=== PATIENT | female | born 1965 | race African-American/Black ===

== ENCOUNTER 2018-05-21 23:54 | Emergency (ER) | payer MEDICAID ==
[~2018-05-21] VITALS: Ht 177.8 cm; Wt 116.2 kg
[~2018-05-21 23:54] MED LIST: AMLO10TA6; AMLO5TAB4 PO; AMLO5TAB7 PO; ASPI81TA50 PO; CITA10TA8; CYCL5TAB10; FLEXERIL; GABA300C10 PO; METO-93; NAPROSYN; OMEP-110 PO; RISP1TAB45; TRAZ-136; ZIPR60CA2 PO
[2018-05-22] MEDS ORDERED: ONDANSETRON ODT 4 MG ONE (00:26)
[2018-05-22] MEDS ORDERED: KETOROLAC 30 MG/1 ML ONE (00:26)
[2018-05-22] MEDS ORDERED: ONDANSETRON ODT 4 MG PO ONE (00:30)
[2018-05-22] MEDS ORDERED: KETOROLAC 30 MG/1 ML IM ONE (00:30)
[2018-05-22 00:47] LABS: BASOPHILS # (AUTO) 0.05 x10^3/uL (0-0.1); BASOPHILS % (AUTO) 1 % (0-1); EOSINOPHILS # (AUTO) 0.21 x10^3/uL (0-0.4); EOSINOPHILS % (AUTO) 3 % (1-7); LYMPHOCYTES # (AUTO) 2.35 x10^3/uL (1-3.4); LYMPHOCYTES % (AUTO) 38 % (22-44); MD NO; MEAN CORPUSCULAR HEMOGLOBIN 31.4 pg (27.0-34.8); MEAN CORPUSCULAR HGB CONC 33.2 g/dL (32.4-35.8); MEAN CORPUSCULAR VOLUME 94.4 fL (80-100); MEAN PLATELET VOLUME 8.9 fL (7.4-10.4); MONOCYTES # (AUTO) 0.59 x10^3/uL (0.2-0.8); MONOCYTES % (AUTO) 10 % (2-9); NEUTROPHILS # (AUTO) 3.01 x10^3/uL (1.8-6.8); NEUTROPHILS % (AUTO) 49 % (42-75); PLATELET COUNT 333 x10^3/uL (130-400); RED BLOOD COUNT 3.72 x10^6/uL (3.82-5.3); RED CELL DISTRIBUTION WIDTH 13.7 % (9.6-15.2)
[2018-05-22 00:58] LABS: INTERNATIONAL NORMALIZED RATIO 0.97 (0.93-1.1)
[2018-05-22 00:59] LABS: ALANINE AMINOTRANSFERASE 18 U/L (12-78); ANION GAP 10 mmol/L (5-15); CALCIUM 8.2 mg/dL (8.5-10.1); CHLORIDE 110 mmol/L (98-107); CREATININE 1.16 mg/dL (0.55-1.02)
[2018-05-22 01:03] LABS: ALKALINE PHOSPHATASE 91 U/L (45-117); BILIRUBIN,TOTAL 0.2 mg/dL (0.2-1.0); TROPONIN I < 0.015 ng/mL (0.000-0.045)
[2018-05-22 01:22] VITALS: BP 138/76
== END 2018-05-22 02:58 | disposition home or self-care (01) ==
LOC: ED 05-22 00:10
DX: B34.9 Viral infection, unspecified (principal); L03.311 Cellulitis of abdominal wall; I48.91 Unspecified atrial fibrillation; E11.9 Type 2 diabetes mellitus without complications; I10 Essential (primary) hypertension; K21.9 Gastro-esophageal reflux disease without esophagitis; Z98.51 Tubal ligation status
CPT/HCPCS: 36415; 71046; 80053; 83880; 84484; 85025; 85610; 85730; 93005; 96372; 99285; J1885; Q0162

== ENCOUNTER 2019-08-29 13:08 | Emergency (ER) | payer MEDICAID ==
[~2019-08-29] VITALS: Ht 180.3 cm; Wt 110.5 kg
[~2019-08-29 13:08] MED LIST changes: +AMLO-150 PO; -AMLO10TA6; +AMLO10TA8; -AMLO5TAB7 PO; -TRAZ-136; +TRAZ50TA66
[2019-08-29 13:18] VITALS: BP 131/68
--- NOTE | 2019-08-29 14:00 | NUR ---
PT WITH C/O RASH TO NECK, R SIDE OF FACE AND BILAT ARMS. PT TEARFUL, SHE STATES SHE WAS TOLD TO WAIT ONE MONTH TO MAKE AN APPOINTMENT WITH PCP AFTER SHE WAS PRESCRIBED ABX AND CREAMS. PT STATES THIS HAS BEEN HAPPENING NOW FOR FOUR MONTHS AND IT IS NOT GETTING BETTER
[2019-08-29 14:19] LABS: ALBUMIN 3.3 g/dL (3.4-5.0); ANION GAP 7 mmol/L (5-15); CALCIUM 8.7 mg/dL (8.5-10.1); CHLORIDE 112 mmol/L (98-107)
[2019-08-29 14:20] LABS: CREATININE 1.32 mg/dL (0.55-1.02)
[2019-08-29] MEDS ORDERED: LORazepam 1MG TABLET ONE (15:00)
[2019-08-29] MEDS ORDERED: LORazepam 1MG TABLET PO ONE (15:00)
[2019-08-29] MEDS ORDERED: IBUPROFEN 200 MG TABLET PO ONE (15:00)
[2019-08-29] MEDS ORDERED: IBUPROFEN 600 MG TABLET ONE (15:00)
[2019-08-29 15:06] LABS: BASOPHILS # (AUTO) 0.08 x10^3/uL (0-0.1); BASOPHILS % (AUTO) 1 % (0-1); EOSINOPHILS # (AUTO) 0.14 x10^3/uL (0-0.4); EOSINOPHILS % (AUTO) 2 % (1-7); LYMPHOCYTES # (AUTO) 2.74 x10^3/uL (1-3.4); LYMPHOCYTES % (AUTO) 46 % (22-44); MD NO; MEAN CORPUSCULAR HEMOGLOBIN 31.4 pg (27.0-34.8); MEAN CORPUSCULAR HGB CONC 32.9 g/dL (32.4-35.8); MEAN CORPUSCULAR VOLUME 95.5 fL (80-100); MEAN PLATELET VOLUME 9.4 fL (7.4-10.4); MONOCYTES # (AUTO) 0.63 x10^3/uL (0.2-0.8); MONOCYTES % (AUTO) 11 % (2-9); NEUTROPHILS # (AUTO) 2.31 x10^3/uL (1.8-6.8); NEUTROPHILS % (AUTO) 39 % (42-75); PLATELET COUNT 308 x10^3/uL (130-400); RED BLOOD COUNT 3.99 x10^6/uL (3.82-5.3); RED CELL DISTRIBUTION WIDTH 12.7 % (9.6-15.2)
--- NOTE | 2019-08-29 15:07 | NUR ---
PT MEDICATED PER OCT, AWAITING LAB RESULTS THEN PT TO DC
== END 2019-08-29 16:07 | disposition home or self-care (01) ==
LOC: ED 13:31
DX: L03.221 Cellulitis of neck (principal); K21.9 Gastro-esophageal reflux disease without esophagitis; I10 Essential (primary) hypertension; E11.9 Type 2 diabetes mellitus without complications
CPT/HCPCS: 36415; 80048; 82040; 85025; 99283